=== PATIENT | female | born 1950 ===

== ENCOUNTER → 2019-07-17 | Outpatient (REF) | payer MEDICARE | LOC: M WUC 21:32 | PROVIDERS: ATTEND Physician Assistant | DX: N39.0 Urinary tract infection, site not specified (principal) ==

== ENCOUNTER → 2024-08-19 | Outpatient (REF) | payer OTHER | LOC: M LAB REF 20:11 | PROVIDERS: ATTEND Nurse Practitioner Family | DX: R30.0 Dysuria (principal) ==